=== PATIENT | female | born 1945 | race Caucasian/White ===

== ENCOUNTER → 2020-03-18 | Outpatient (CLI) | payer MEDICARE ==
[~2020-03-18] MED LIST: BUPROPION PO; Gabapentin PO; Levothyroxine PO; Lisinopril PO; Vitamin E PO; amlodipine PO; methocarbamol PO; metoprolol PO; seroquel PO
[2020-03-18 15:33] LABS: BASOPHILS # (AUTO) 0.04 x10^3/uL (0-0.1); BASOPHILS % (AUTO) 1 % (0-1); EOSINOPHILS # (AUTO) 0.13 x10^3/uL (0-0.4); EOSINOPHILS % (AUTO) 2 % (1-7); LYMPHOCYTES # (AUTO) 2.15 x10^3/uL (1-3.4); LYMPHOCYTES % (AUTO) 26 % (22-44); MD NO; MEAN CORPUSCULAR HEMOGLOBIN 27.3 pg (27.0-34.8); MEAN CORPUSCULAR HGB CONC 32.6 g/dL (32.4-35.8); MEAN CORPUSCULAR VOLUME 83.7 fL (80-100); MEAN PLATELET VOLUME 7.3 fL (7.4-10.4); MONOCYTES # (AUTO) 0.62 x10^3/uL (0.2-0.8); MONOCYTES % (AUTO) 8 % (2-9); NEUTROPHILS # (AUTO) 5.19 x10^3/uL (1.8-6.8); NEUTROPHILS % (AUTO) 64 % (42-75); PLATELET COUNT 271 x10^3/uL (130-400); RED BLOOD COUNT 4.34 x10^6/uL (3.82-5.3); RED CELL DISTRIBUTION WIDTH 14.8 % (9.6-15.2)
[2020-03-18 15:36] LABS: ALANINE AMINOTRANSFERASE 21 U/L (12-78); ALBUMIN 3.8 g/dL (3.4-5.0); ANION GAP 4 mmol/L (5-15); CALCIUM 8.8 mg/dL (8.5-10.1); CHLORIDE 101 mmol/L (98-107); CREATININE 1.04 mg/dL (0.55-1.02)
[2020-03-18 15:38] LABS: ALKALINE PHOSPHATASE 104 U/L (45-117); BILIRUBIN,TOTAL 0.4 mg/dL (0.2-1.0); TOTAL PROTEIN 7.3 g/dL (6.4-8.2)
[2020-03-18 17:21] LABS: MICROSCOPIC INDICATED
== END | disposition home or self-care (01) ==
LOC: STAR 13:54
PROVIDERS: ATTEND Orthopaedic Surgery
DX: Z01.818 Encounter for other preprocedural examination (principal); M17.12 Unilateral primary osteoarthritis, left knee; M25.562 Pain in left knee
CPT/HCPCS: 36415; 80053; 81001; 85025; 87081; 87086; 87147; 93005

== ENCOUNTER 2020-05-07 10:33 | Outpatient (CLI) | payer MEDICARE ==
[2020-05-11] MEDS ORDERED: ESCI20TA10 PO (10:38)
[2020-05-11] MEDS ORDERED: DEXL60CA2 PO (10:38)
[2020-05-11] MEDS ORDERED: ESCI20TA PO (10:38)
[2020-05-11] MEDS ORDERED: OXYC-307 PO (10:39)
== END 2020-05-07 23:59 | disposition home or self-care (01) ==
LOC: STAR 10:33
PROVIDERS: ATTEND Anesthesiology
DX: Z01.812 Encounter for preprocedural laboratory examination (principal); Z20.828 Contact with and (suspected) exposure to other viral communicable diseases
CPT/HCPCS: 36415; 87635

== ENCOUNTER → 2020-11-26 | Outpatient (CLI) | payer MEDICARE ==
[~2020-11-26] MED LIST changes: +AMLO-150 PO; +BUPR300T94 PO; +DEXL60CA2 PO; +ESCI20TA10 PO; +ESCI20TA8 PO; +GABA600T7 PO; +HYDR2TAB40 PO; +LEVO100T PO; +LISI40TA9 PO; +METH-639 PO; +METO25TA35 PO; +OXYC-380 PO; +QUET400T4 PO
[2020-11-26 14:29] LABS: MICROSCOPIC AUTO
[2020-11-26 14:30] LABS: BASOPHILS % (AUTO) 1 % (0-1); EOSINOPHILS % (AUTO) 2 % (1-7); LYMPHOCYTES % (AUTO) 33 % (22-44); MEAN CORPUSCULAR HEMOGLOBIN 25.3 pg (27.0-34.8); MEAN CORPUSCULAR HGB CONC 32.7 g/dL (32.4-35.8); MEAN PLATELET VOLUME 7.6 fL (7.4-10.4); MONOCYTES % (AUTO) 9 % (2-9); NEUTROPHILS % (AUTO) 55 % (42-75); PLATELET COUNT 297 x10^3/uL (130-400); RED BLOOD COUNT 4.33 x10^6/uL (3.82-5.3); RED CELL DISTRIBUTION WIDTH 16.2 % (9.6-15.2)
[2020-11-26 14:35] LABS: MD NO
[2020-11-26 14:39] LABS: ALANINE AMINOTRANSFERASE 20 U/L (12-78); ALBUMIN 3.7 g/dL (3.4-5.0); ANION GAP 5 mmol/L (5-15); CALCIUM 8.6 mg/dL (8.5-10.1); CHLORIDE 103 mmol/L (98-107); CREATININE 1.31 mg/dL (0.55-1.02)
[2020-11-26 14:41] LABS: ALKALINE PHOSPHATASE 123 U/L (45-117); BILIRUBIN,TOTAL 0.3 mg/dL (0.2-1.0); TOTAL PROTEIN 7.2 g/dL (6.4-8.2)
== END | disposition home or self-care (01) ==
LOC: STAR 12:39
PROVIDERS: ATTEND Orthopaedic Surgery
DX: Z01.812 Encounter for preprocedural laboratory examination (principal); Z20.822 Contact with and (suspected) exposure to COVID-19; M13.861 Other specified arthritis, right knee; R94.31 Abnormal electrocardiogram [ECG] [EKG]
CPT/HCPCS: 36415; 80053; 81001; 85025; 87081; 87086; 93005; U0003; 87077

== ENCOUNTER 2020-12-02 07:06 | Inpatient (IN) | payer MEDICARE ==
[~2020-12-02] VITALS: Ht 160 cm; Wt 78.0 kg
[~2020-12-02 07:06] MED LIST changes: +EPINEPHRINE 1 MG/ML, 1ML ONE; +KETOROLAC 60 MG/2 ML ONE; +ROPIvacaine/PF 0.2%, 20 ML ONE; +SODIUM CHLORIDE 0.9% 0 ML ONE; +TRANEXAMIC ACID 100 MG/ML, 10ML ONE
[2020-12-02] MEDS ORDERED: FENTANYL PF 250 MCG/5ML ONE ×2 (07:32→09:17)
[2020-12-02] MEDS ORDERED: CEPH-376 PO (07:34)
[2020-12-02] MEDS ORDERED: CIME400T PO (07:35)
[2020-12-02] MEDS ORDERED: OMEP40CA42 PO (07:35)
[2020-12-02] MEDS ORDERED: PROPOFOL 50 ML ONE (07:37)
[2020-12-02] MEDS ORDERED: MIDAZOLAM 1 MG/ML, 2ML ONE (07:39)
[2020-12-02] MEDS ORDERED: LIDOCAINE-MPF 1%, 2ML ONE (07:49)
[2020-12-02] MEDS ORDERED: CHLORHEXIDINE 15 ML UDC PO ONE (08:00)
[2020-12-02] MEDS ORDERED: LACTATED RINGERS 1,000 ML IV SCH (08:00)
[2020-12-02] MEDS ORDERED: LIDOCAINE-MPF 1%, 2ML INFIL ONE (08:00)
[2020-12-02] MEDS ORDERED: DEXAMETHASONE 4 MG/ML, 1ML ONE (08:09)
[2020-12-02] MEDS ORDERED: CEFAZOLIN 1,000 MG ONE (08:09)
[2020-12-02] MEDS ORDERED: GLYCOPYRROLATE 0.2MG/1ML, 5ML ONE (08:09)
[2020-12-02] MEDS ORDERED: ONDANSETRON 2MG/ML, 2ML ONE (08:09)
[2020-12-02] MEDS ORDERED: SUCCINYLCHOLINE 20 MG/ML, 10ML ONE (08:09)
[2020-12-02] MEDS ORDERED: NEOSTIGMINE 1 MG/ML, 10ML ONE (08:09)
[2020-12-02] MEDS ORDERED: ROCURONIUM 10 MG/ML,10ML ONE (08:09)
[2020-12-02] MEDS ORDERED: VANCOMYCIN 1,000 MG ONE (08:32)
[2020-12-02] MEDS ORDERED: LABETALOL 5MG/ML, 20ML IV PRN (09:00)
[2020-12-02] MEDS ORDERED: PROMETHAZINE 25 MG/ML, 1ML IVPush PRN (09:00)
[2020-12-02] MEDS ORDERED: LORazepam 2 MG/ML, 1ML IVPush PRN (09:00)
[2020-12-02] MEDS ORDERED: METHOCARBAMOL 1,000 MG in DEXTROSE 5% 100 ML IV PRN (09:00)
[2020-12-02] MEDS ORDERED: ONDANSETRON 2MG/ML, 2ML IVPush PRN (09:00)
[2020-12-02] MEDS ORDERED: hydrALAzine 20 MG/ML, 1ML IV PRN (09:00)
[2020-12-02] MEDS ORDERED: MEPERIDINE/PF 25MG/0.5ML IVPush PRN (09:00)
[2020-12-02] MEDS ORDERED: HYDROmorphone 1 MG/ML, 1ML INJ IVPush PRN (09:00)
[2020-12-02] MEDS ORDERED: ACETAMINOPHEN 325 MG TABLET PO PRN (09:00)
[2020-12-02] MEDS ORDERED: OXYcodone 5 MG/5 ML ORAL.SOL UDC PO PRN ×2 (09:00→10:00)
[2020-12-02] MEDS ORDERED: OXYcodone 5 MG/5 ML ORAL.SOL UDC ONE (09:39)
[2020-12-02] MEDS ORDERED: FENTANYL PF 100 MCG/2ML ONE ×2 (09:39→10:05)
[2020-12-02] MEDS ORDERED: ACETAMINOPHEN 650 MG/20.3 ML UDC ONE (09:39)
[2020-12-02] MEDS: FENTANYL PF 100 MCG/2ML IV PRN ×4 (09:50→10:20)
[2020-12-02] MEDS ORDERED: ONDANSETRON 4 MG TABLET PO PRN (10:00)
[2020-12-02] MEDS ORDERED: CIMETIDINE 400 MG TABLET PO PRN (10:00)
[2020-12-02] MEDS ORDERED: HYDROcodone/APAP 5/325 TABLET PO PRN (10:00)
[2020-12-02] MEDS ORDERED: DIAZEPAM 5 MG TABLET PO PRN (10:00)
[2020-12-02] MEDS ORDERED: PROMETHAZINE 25 MG/ML, 1ML IM PRN (10:00)
[2020-12-02] MEDS ORDERED: DIPHENHYDRAMINE 50 MG/ML, 1ML IVPush PRN (10:00)
[2020-12-02] MEDS ORDERED: ONDANSETRON 2MG/ML, 2ML IV PRN (10:00)
[2020-12-02] MEDS ORDERED: CEFAZOLIN PMX 1GM/50ML 50 ML IVPB SCH (10:00)
[2020-12-02] MEDS ORDERED: HYDROmorphone 1 MG/ML, 1ML INJ ONE (10:05)
[2020-12-02] MEDS: MORPHINE SULFATE 4 MG/ML, 1ML IVPush PRN ×4 (11:26→20:43)
[2020-12-02 13:55] VITALS: BP 107/82
[2020-12-02] MEDS: OXYcodone/APAP 5/325MG TABLET PO PRN ×2 (15:02→20:02)
[2020-12-02] MEDS: CEFAZOLIN PMX 1GM/50ML 50 ML IVPB SCH (17:37)
[2020-12-02 19:07] VITALS: BP 109/57
[2020-12-02] MEDS: DOCUSATE 100 MG CAPSULE PO SCH (19:59)
[2020-12-02] MEDS: GABAPENTIN 300 MG CAPSULE PO SCH (20:02)
[2020-12-02] MEDS: QUETIAPINE 200 MG TABLET PO SCH (20:02)
[2020-12-03 00:28] VITALS: BP 115/69
[2020-12-03] MEDS: CEFAZOLIN PMX 1GM/50ML 50 ML IVPB SCH (01:08)
[2020-12-03 05:18] VITALS: BP 107/55
[2020-12-03] MEDS: ASPIRIN 81 MG TABLET EC PO SCH (05:59)
[2020-12-03] MEDS: LEVOTHYROXINE 100 MCG TABLET PO SCH (05:59)
[2020-12-03] MEDS ORDERED: DEXAMETHASONE 4 MG/ML, 1ML IVPush ONE (06:00)
[2020-12-03] MEDS: OXYcodone/APAP 5/325MG TABLET PO PRN ×2 (06:00→10:06)
[2020-12-03 07:31] VITALS: BP 168/70
[2020-12-03] MEDS: DOCUSATE 100 MG CAPSULE PO SCH ×2 (08:40→22:02)
[2020-12-03] MEDS: MORPHINE SULFATE 4 MG/ML, 1ML IVPush PRN (08:40)
[2020-12-03] MEDS: GABAPENTIN 300 MG CAPSULE PO SCH ×2 (08:41→22:03)
[2020-12-03] MEDS: ESCITALOPRAM 10MG TABLET PO SCH (08:41)
[2020-12-03] MEDS: BUPROPION SR 150 MG TABLET PO SCH (08:41)
[2020-12-03] MEDS: AMLODIPINE 5 MG TABLET PO SCH (08:41)
[2020-12-03] MEDS: LISINOPRIL 40 MG TABLET PO SCH (08:41)
[2020-12-03] MEDS: OMEPRAZOLE 20 MG CAPSULE.DR PO SCH (08:41)
[2020-12-03] MEDS: METOPROLOL TARTRATE 25 MG TAB PO SCH (08:42)
[2020-12-03 12:54] VITALS: BP 168/70
[2020-12-03] MEDS ORDERED: OXYcodone/APAP 10/325MG TABLET PO PRN (13:00)
[2020-12-03] MEDS: OXYcodone/APAP 10/325MG TABLET PO PRN ×3 (13:55→22:16)
[2020-12-03] MEDS ORDERED: FAMOTIDINE 20 MG TABLET PO SCH (17:48)
[2020-12-03] MEDS ORDERED: FAMOTIDINE 20 MG TABLET PO PRN (18:00)
[2020-12-03] MEDS ORDERED: ASPIRIN 81 MG TABLET EC PO SCH (18:00)
[2020-12-03 20:23] VITALS: BP_SYST 168; BP_SYST 175; BP_DIAS 63; BP_DIAS 82
[2020-12-03 21:20] VITALS: BP 139/94
[2020-12-03] MEDS: KETOROLAC 30 MG/1 ML IVPush PRN (22:02)
[2020-12-03] MEDS: QUETIAPINE 200 MG TABLET PO SCH (22:03)
[2020-12-04] MEDS: KETOROLAC 30 MG/1 ML IVPush PRN (00:20)
[2020-12-04 01:14] VITALS: BP 164/69
[2020-12-04] MEDS: ASPIRIN 81 MG TABLET EC PO SCH (06:39)
[2020-12-04] MEDS: LEVOTHYROXINE 100 MCG TABLET PO SCH (06:39)
[2020-12-04 07:13] VITALS: BP 157/72
[2020-12-04] MEDS: OXYcodone/APAP 10/325MG TABLET PO PRN ×2 (08:20→13:14)
[2020-12-04] MEDS: GABAPENTIN 300 MG CAPSULE PO SCH (08:20)
[2020-12-04] MEDS: METOPROLOL TARTRATE 25 MG TAB PO SCH (08:21)
[2020-12-04] MEDS: LISINOPRIL 40 MG TABLET PO SCH (08:21)
[2020-12-04] MEDS: ESCITALOPRAM 10MG TABLET PO SCH (08:21)
[2020-12-04] MEDS: DOCUSATE 100 MG CAPSULE PO SCH (08:21)
[2020-12-04] MEDS: AMLODIPINE 5 MG TABLET PO SCH (08:21)
[2020-12-04] MEDS: BUPROPION SR 150 MG TABLET PO SCH (08:22)
[2020-12-04] MEDS: OMEPRAZOLE 20 MG CAPSULE.DR PO SCH (08:22)
[2020-12-04] MEDS ORDERED: OXYC-380 PO (08:45)
[2020-12-04] MEDS ORDERED: HYDR2TAB40 PO (08:45)
[2020-12-04] MEDS ORDERED: HYDROmorphone 2MG TABLET PO PRN (09:00)
[2020-12-04] MEDS ORDERED: METHOCARBAMOL 750 MG TABLET PO PRN (09:00)
[2020-12-04 15:34] VITALS: BP 161/76
== END 2020-12-04 16:10 | disposition home health service (06) | DRG 470 ==
LOC: OUT 07:06 → OBSVTOIN 09:40 → ORIP 09:40 → 4NE 10:41
PROVIDERS: ADMIT Orthopaedic Surgery; ATTEND Orthopaedic Surgery
PROC: 3E0T3BZ Introduction of Anesthetic Agent into Peripheral Nerves and Plexi, Percutaneous Approach (ICD-10-PCS; 2020-12-02)
PROC: 0SRC0J9 Replacement of Right Knee Joint with Synthetic Substitute, Cemented, Open Approach (ICD-10-PCS; principal; 2020-12-02 08:30)
DX: M17.11 Unilateral primary osteoarthritis, right knee (principal); F11.20 Opioid dependence, uncomplicated; Z20.822 Contact with and (suspected) exposure to COVID-19; M21.161 Varus deformity, not elsewhere classified, right knee
CPT/HCPCS: C1713; G0378; J0171; J0690; J1100; J1885; J2250; J2405; J2704; J2710; J2795; J3010; J3370; C1776; J0330; J1200; J2270; J2800; J7120